=== PATIENT | male | born 1960 | race Caucasian/White ===

== ENCOUNTER 2017-10-20 12:11 | Observation (INO) | payer MEDICAID ==
[~2017-10-20] VITALS: Ht 175.3 cm; Wt 89.8 kg
[~2017-10-20 12:11] MED LIST: OXYC-307 PO
[2017-10-20] MEDS ORDERED: MORPHINE SULFATE 4 MG/ML, 1ML IVPush PRN (13:00)
[2017-10-20] MEDS ORDERED: SODIUM CHLORIDE FLUSH 10ML SYR IVF ONE (13:00)
[2017-10-20] MEDS ORDERED: SODIUM CHLORIDE 0.9% 1,000ML IVBOLUS ONE (13:00)
[2017-10-20] MEDS ORDERED: ONDANSETRON 2MG/ML, 2ML IVPush ONE (13:00)
[2017-10-20] MEDS ORDERED: ONDANSETRON 2MG/ML, 2ML ONE ×2 (13:01→17:43)
[2017-10-20] MEDS ORDERED: morphine SULFATE 10 MG/ML, 1ML ONE (13:01)
[2017-10-20 13:06] LABS: HEMOGLOBIN 15.1 g/dL (13.7-18.0); WHITE BLOOD COUNT 7.7 x10^3/uL (3.4-10)
[2017-10-20 13:16] LABS: ASPARTATE AMINO TRANSFERASE 24 U/L (15-37); BLOOD UREA NITROGEN 17 mg/dL (7-18)
[2017-10-20] MEDS ORDERED: EPINEPHRINE 1 MG/ML, 1ML ONE ×2 (14:37→17:01)
[2017-10-20] MEDS ORDERED: BUPIVACAINE/PF 0.5% ONE ×2 (14:37→17:01)
[2017-10-20] MEDS ORDERED: ROCURONIUM 10 MG/ML,10ML ONE (17:12)
[2017-10-20] MEDS ORDERED: PROPOFOL 10 MG/ML, 20ML ONE (17:12)
[2017-10-20] MEDS ORDERED: MIDAZOLAM 1 MG/ML, 2ML ONE (17:14)
[2017-10-20] MEDS ORDERED: FENTANYL PF 100 MCG/2ML ONE ×2 (17:14→18:02)
[2017-10-20] MEDS ORDERED: SUCCINYLCHOLINE 20 MG/ML, 10ML ONE (17:18)
[2017-10-20] MEDS ORDERED: DEXAMETHASONE 4 MG/ML, 1ML ONE (17:43)
[2017-10-20] MEDS ORDERED: CEFAZOLIN 1,000 MG ONE ×2 (17:48)
[2017-10-20] MEDS ORDERED: LABETALOL 5MG/ML, 20ML IV PRN (18:00)
[2017-10-20] MEDS ORDERED: OXYcodone 5 MG/5 ML ORAL.SOL UDC PO PRN ×3 (18:00→21:30)
[2017-10-20] MEDS ORDERED: EPHEDRINE 50 MG/ML, 1ML IVPush PRN (18:00)
[2017-10-20] MEDS ORDERED: IBUPROFEN 600 MG TABLET PO SCH (18:00)
[2017-10-20] MEDS ORDERED: ACETAMINOPHEN 325 MG TABLET PO PRN (18:00)
[2017-10-20] MEDS ORDERED: MEPERIDINE/PF 25MG/0.5ML IVPush PRN (18:00)
[2017-10-20] MEDS ORDERED: ONDANSETRON 2MG/ML, 2ML IVPush PRN ×3 (18:00→21:30)
[2017-10-20] MEDS ORDERED: METOCLOPRAMIDE 5 MG/ML, 2ML IV PRN (18:00)
[2017-10-20] MEDS ORDERED: FENTANYL PF 100 MCG/2ML IV PRN (18:00)
[2017-10-20] MEDS ORDERED: MIDAZOLAM 1 MG/ML, 2ML IV PRN (18:00)
[2017-10-20] MEDS ORDERED: hydrALAzine 20 MG/ML, 1ML IV PRN (18:00)
[2017-10-20] MEDS ORDERED: ALBUTEROL SULFATE 2.5 MG/3 ML NPPB PRN (18:00)
[2017-10-20] MEDS ORDERED: METOPROLOL 1 MG/ML, 5ML IV PRN (18:00)
[2017-10-20] MEDS ORDERED: HYDROcodone/APAP 7.5-325MG/15ML UDC PO PRN (18:00)
[2017-10-20] MEDS ORDERED: OXYcodone 5 MG/5 ML ORAL.SOL UDC ONE ×2 (18:02→18:09)
[2017-10-20] MEDS ORDERED: ACETAMINOPHEN 650 MG/20.3 ML UDC ONE (18:09)
[2017-10-20] MEDS ORDERED: HYDROmorphone 1 MG/ML, 1ML ONE (18:19)
[2017-10-20] MEDS: HYDROmorphone 1 MG/ML, 1ML IV PRN ×2 (18:21→18:29)
[2017-10-20 21:00] VITALS: BP 137/76
[2017-10-21] MEDS ORDERED: IBUPROFEN 600 MG TABLET PO SCH (06:00)
== END 2017-10-20 22:16 | disposition home or self-care (01) ==
LOC: ED 12:31 → EDIP 14:09 → INTOOBSV 14:09 → 4NOR 15:14
PROVIDERS: ADMIT Surgery; ATTEND Surgery
DX: K80.10 Calculus of gallbladder with chronic cholecystitis without obstruction (principal); F17.210 Nicotine dependence, cigarettes, uncomplicated
CPT/HCPCS: 36415; 47562; 76700; 80053; 83605; 83690; 85025; 88304; 96374; 96375; 99285; G0378; J0171; J0330; J0690; J1100; J1170; J2250; J2405; J2704; J3010; J3490; J7030

== ENCOUNTER 2017-11-26 09:06 | Emergency (ER) | payer MEDICAID ==
[~2017-11-26] VITALS: Ht 175.3 cm; Wt 92.1 kg
[2017-11-26 11:44] VITALS: BP 141/88
== END 2017-11-26 12:06 | disposition home or self-care (01) ==
LOC: ED 11:45
DX: M71.21 Synovial cyst of popliteal space [Baker], right knee (principal); L04.1 Acute lymphadenitis of trunk
CPT/HCPCS: 99284

== ENCOUNTER 2017-12-31 07:35 | Emergency (ER) | payer MEDICAID ==
[~2017-12-31] VITALS: Ht 170.2 cm; Wt 88.6 kg
[2017-12-31] MEDS ORDERED: OXYcodone/APAP 5/325MG TABLET PO ONE (08:00)
[2017-12-31] MEDS ORDERED: OXYcodone/APAP 5/325MG TABLET ONE (08:00)
[2017-12-31 08:56] VITALS: BP 135/82
== END 2017-12-31 09:20 | disposition home or self-care (01) ==
LOC: ED 08:40
DX: G89.29 Other chronic pain (principal); M25.561 Pain in right knee; F17.210 Nicotine dependence, cigarettes, uncomplicated; Z96.651 Presence of right artificial knee joint
CPT/HCPCS: 99284

== ENCOUNTER 2018-05-02 08:31 | Emergency (ER) | payer MEDICAID ==
[~2018-05-02] VITALS: Ht 175.3 cm; Wt 88.0 kg
[2018-05-02 08:33] VITALS: BP 136/86
[2018-05-02] MEDS ORDERED: HYDROcodone/APAP 5/325 TABLET PO ONE (09:30)
[2018-05-02] MEDS ORDERED: HYDROcodone/APAP 5/325 TABLET ONE (09:39)
== END 2018-05-02 10:19 | disposition left against medical advice (07) ==
LOC: ED 10:13
DX: M54.5 Low back pain (principal)
CPT/HCPCS: 99282